=== PATIENT | male | born 1970 | race Caucasian/White ===

== ENCOUNTER 2016-09-30 10:04 | Emergency (ER) | payer SELFPAY ==
[2016-09-30] MEDS ORDERED: OXYCODONE-ACETAMINOPHEN 5-325 MG TABLET PO ONE (10:24)
[2016-09-30 10:25] VITALS: BP 168/103
--- NOTE | 2016-09-30 10:26 | ER Document Report ---
ED Extremity Problem, Lower - General Chief Complaint: Feet Swelling Stated Complaint: FEET SWELLING,PAIN Time Seen by Provider: 09/30/16 10:18 Mode of Arrival: Ambulatory Information source: Patient - HPI Patient complains to provider of: Pain, Swelling Location: Foot Occurred: Other - 2-3 weeks Onset/Duration: Gradual, Persistent Quality of pain: Achy Severity: Moderate Pain Level: 4 Recent injury: No Associated symptoms: Painful ambulation Exacerbated by: Movement Relieved by: Nothing Notes: It is a 45-year-old male with no past medical history who presents to the emergency room complaining of bilateral foot pain, symptoms started approximately 2-1/2 weeks ago mainly in the left foot, increased redness and swelling at the base of the first toe, over the past few days it has worsened in the right foot, patient has no history of gout but states that he did online research and believes that he does now have gout, he admits that he drinks a lot of beer, eats a lot of red meat, denies any injury to this area, no history of similar symptoms previously, has not taken any medication at home today, over the last few days he has been taking Tylenol arthritis - Related Data Allergies/Adverse Reactions: No Known Allergies Allergy (Unverified 09/30/16 10:26) Past Medical History - General Information source: Patient - Social History Smoking Status: Current Every Day Smoker Family History: Reviewed & Not Pertinent Review of Systems - Review of Systems Constitutional: No symptoms reported EENT: No symptoms reported Cardiovascular: No symptoms reported Respiratory: No symptoms reported Gastrointestinal: No symptoms reported Genitourinary: No symptoms reported Male Genitourinary: No symptoms reported Musculoskeletal: See HPI Skin: See HPI Hematologic/Lymphatic: No symptoms reported Neurological/Psychological: No symptoms reported -: Yes All other systems reviewed and negative Physical Exam - Vital signs Vitals: Temp Pulse Resp BP Pulse Ox 97.6 F 80 18 168/103 H 98 09/30/16 10:25 09/30/16 10:25 09/30/16 10:25 09/30/16 10:25 09/30/16 10:25 - Notes Notes: - General General appearance: Appears well, Alert In distress: None - HEENT Head: Normocephalic, Atraumatic Eyes: Normal Conjunctiva: Normal Extraocular movements intact: Yes Eyelashes: Normal Pupils: PERRL - Respiratory Respiratory status: No respiratory distress - Cardiovascular Rhythm: Regular - Abdominal Inspection: Normal - Back Back: Normal - Extremities General upper extremity: Normal inspection General lower extremity: Bilateral feet with increased redness and swelling at the base of the first digits, tender to palpate, mild swelling diffusely otherwise, 2+ DP pulses, brisk capillary refill with intact sensation and motor - Neurological Neuro grossly intact: Yes Orientation: AAOx4 [place] Coma Scale Eye Opening: Spontaneous [place] Coma Scale Verbal: Oriented [place] Coma Scale Motor: Obeys Commands [place] Coma Scale Total: 15 - Psychological Associated symptoms: Normal affect, Normal mood - Skin Skin Temperature: Warm Skin Moisture: Dry Skin Color: Normal Course - Re-evaluation Re-evalutation: 09/30/16 13:54 Patient symptoms are consistent with gout, he was advised of dietary changes to decrease symptoms, provided with pain medication and advised to follow-up with a primary care provider, patient acknowledges understanding and agreement with plan - Vital Signs Vital signs: Temp Pulse Resp BP Pulse Ox 97.6 F 80 18 168/103 H 98 09/30/16 10:25 09/30/16 10:25 09/30/16 10:25 09/30/16 10:25 09/30/16 10:25 Discharge - Discharge Clinical Impression: Gout Qualifiers: Gout site: foot Gout etiology: unspecified cause Chronicity: acute Laterality: unspecified laterality Qualified Code(s): M10.9 - Gout, unspecified Condition: Stable Disposition: HOME, SELF-CARE Instructions: Gout ([facility]), Gout Diet ([facility]) Additional Instructions: Follow up with your primary care provider in one to 2 days. Return to the emergency room immediately if symptoms worsen or any additional concerns. Prescriptions: Indomethacin [Indocin 50 Mg Capsule] 50 mg PO TID #90 capsule Oxycodone HCl/Acetaminophen [Percocet 5-325 mg Tablet] 1 - 2 tab PO ASDIR PRN # 15 tablet PRN Reason: Forms: Smoking Cessation Education
== END 2016-09-30 10:39 | disposition home or self-care (01) ==
LOC: ER 10:04
DX: M10.9 Gout, unspecified (principal); M79.671 Pain in right foot; M79.672 Pain in left foot; F17.200 Nicotine dependence, unspecified, uncomplicated
CPT/HCPCS: 99283

== ENCOUNTER 2017-03-09 03:27 | Emergency (ER) | payer SELFPAY ==
[2017-03-09] MEDS ORDERED: NORMAL SALINE 1000 ML 1,000 ML IV ONE (03:59)
[2017-03-09] MEDS ORDERED: KETOROLAC TROMETHAMINE INJ/PF 30 MG/1 ML SDV IV ONE (03:59)
[2017-03-09] MEDS ORDERED: ONDANSETRON HCL INJ/PF 4 MG/2 ML SDV IV ONE ×2 (03:59→06:41)
[2017-03-09 04:06] LABS: ABSOLUTE BASOPHILS # (AUTO) 0.1 10^3/uL (0.0-0.2); ABSOLUTE EOSINOPHILS # (AUTO) 0.2 10^3/uL (0.0-0.6); ABSOLUTE LYMPHOCYTES (AUTO) 1.6 10^3/uL (0.5-4.7); ABSOLUTE MONOCYTES (AUTO) 0.9 10^3/uL (0.1-1.4); ABSOLUTE NEUT (AUTO) 11.1 10^3/uL (1.7-8.2); BASOPHILS % (AUTO) 0.8 % (0-2); EOSINOPHILS % (AUTO) 1.2 % (0-6); HEMOGLOBIN 16.2 g/dL (13.5-17.0); HGB HCT DIFFERENCE 1.6; LYMPHOCYTES % (AUTO) 11.5 % (13-45); MEAN CORPUSCULAR HEMOGLOBIN 32.4 pg (27.0-33.4); MEAN CORPUSCULAR HGB CONC 34.5 g/dL (32.0-36.0); MEAN CORPUSCULAR VOLUME 94 fl (80-97); MONOCYTES % (AUTO) 6.6 % (3-13); RED CELL DISTRIBUTION WIDTH 13.7 % (11.5-14.0); SEGMENTED NEUTROPHILS % (AUTO) 79.9 % (42-78); WHITE BLOOD COUNT 13.8 10^3/uL (4.0-10.5)
[2017-03-09 04:19] LABS: ANION GAP 16 (5-19); BLOOD UREA NITROGEN 16 mg/dL (7-20); CALCIUM 9.5 mg/dL (8.4-10.2); CARBON DIOXIDE 26 mmol/L (22-30); CHLORIDE 102 mmol/L (98-107); CREATININE RESULT 0.82 mg/dL (0.52-1.25); GLUCOSE 121 mg/dL (75-110); POTASSIUM 4.4 mmol/L (3.6-5.0); SODIUM 143.9 mmol/L (137-145)
--- NOTE | 2017-03-09 04:34 | RADIOLOGY REPORT (SQ) ---
EXAM DESCRIPTION: CT LTD RENAL STONE PROTOCOL ON CLINICAL HISTORY: 46 years Male, left flank pain COMPARISON: None. TECHNIQUE: This exam was performed according to our departmental dose-optimization program, which includes automated exposure control, adjustment of the mA and/or kV according to patient size and/or use of iterative reconstruction technique. FINDINGS: Minimal bilateral perinephric fat stranding. No significant stone. No hydronephrosis and no hydroureter. 0.3 cm appendicolith and otherwise unremarkable appendix with no evidence of appendicitis. Moderate low attenuation thickening throughout the colonic wall suggests old infectious or inflammatory insult. Atherosclerosis. Mild disc desiccation between the L3 and S1 levels. Unenhanced inferior chest, nonopacified [id number] structures including the gallbladder, moderate L5-S1 desiccated disc bulge, 0.2 cm degenerative L5 retrolisthesis, and remaining musculoskeleton appear otherwise unremarkable. IMPRESSION: 1. Minimal nonspecific perinephric fat stranding may indicate pyelonephritis or chronic medical renal disease. 2. Appendicolith. No evidence of appendicitis.
[2017-03-09] MEDS ORDERED: MORPHINE SULFATE 10 MG/ML INJ IV ONE ×2 (04:37→06:41)
[2017-03-09] MEDS ORDERED: PROMETHAZINE HCL INJ 25 MG/1 ML VIAL IM ONE (04:46)
--- NOTE | 2017-03-09 05:08 | ER Document Report ---
ED General - General Chief Complaint: Abdominal Pain Stated Complaint: ABDOMINAL PAIN Time Seen by Provider: 03/09/17 03:49 Notes: Patient is a 46-year-old male presents with complaint of pain initially started in his left back things were mild yesterday. He then woke up and all night with severe pain in his left flank radiating to left lower quadrant. He denies any dysuria. Denies any fevers. He says he has had a milder version of this pain once in the past but it went away and therefore never saw a physician. He does not see a physician on a regular basis. He does drink alcohol daily. He does smoke. Denies previous history of pancreatitis. He has had vomiting. No diarrhea. No blood in stool. No other complaints at this time. Patient says that he just drinks 1 or 2 drinks a day however his is not at me and saying that it hurts more. When asked patient if ever has withdrawal if he goes more than 24 hours without drinking the patient says no I do not think so however his is actively shaking her head yes that he does. TRAVEL OUTSIDE OF THE [place] IN LAST 30 DAYS: No - Related Data Allergies/Adverse Reactions: No Known Allergies Allergy (Unverified 09/30/16 10:26) Past Medical History - Social History Smoking Status: Current Every Day Smoker Frequency of alcohol use: Heavy Drug Abuse: None Family History: Reviewed & Not Pertinent Patient has suicidal ideation: No Patient has homicidal ideation: No Renal/ Medical History: Denies: Hx Peritoneal Dialysis Review of Systems - Review of Systems Notes: My Normal Review Basic REVIEW OF SYSTEMS: CONSTITUTIONAL : Denies fever, chills, or sweats. Denies recent illness. EENT: Denies eye, ear, throat, or mouth pain or symptoms. Denies nasal or sinus congestion. CARDIOVASCULAR: Denies chest pain. RESPIRATORY: Denies cough, cold, or chest congestion. Denies shortness of breath, difficulty breathing, or wheezing. GASTROINTESTINAL: Flank and left lower quadrant abdominal pain. Current vomiting. GENITOURINARY: Denies difficulty urinating, painful urination, burning, frequency, or blood in urine. MUSCULOSKELETAL: Denies neck or back pain or joint pain or swelling. SKIN: Denies rash or skin lesions. NEUROLOGICAL: Denies altered mental status or loss of consciousness. Denies headache. Denies weakness or paralysis or loss of use of either side. Denies problems with gait or speech. Denies sensory or motor loss. ALL OTHER SYSTEMS REVIEWED AND NEGATIVE. Physical Exam - Vital signs Vitals: Temp Pulse Resp BP Pulse Ox 97.5 F 85 22 H 190/101 H 99 03/09/17 03:39 03/09/17 03:39 03/09/17 03:39 03/09/17 03:39 03/09/17 03:39 - Notes Notes: General Appearance: Well nourished, alert, cooperative, no acute distress, alert , obvious moderate discomfort. Vitals: reviewed, See vital signs table. Head: no swelling or tenderness to the head Eyes: PERRL, EOMI, Conjuctiva clear Mouth: No decreasd moisture Lungs: No wheezing, No rales, No rhonci, No accessory muscle use, good air exchange bilaterally. Heart: Normal rate, Regular rythm, No murmur, no rub Abdomen: Normal BS, soft, No rigidity, patient actually does not have worsening of his pain with palpation., No guarding, no rebound, no abdominal masses, no organomegaly Back: No significant tenderness palpation of the upper or lower back. Extremities: strength 5/5 in all extremities, good pulses in all extremities, no swelling or tenderness in the extremities, no edema. Skin: warm, dry, appropriate color, no rash Neuro: speech clear, oriented x 3, normal affect, responds appropriately to questions. Course - Re-evaluation Re-evalutation: 03/09/17 05:40 All of the patient's testing is back. He had a CT scan which did not show any specific cause of his pain. There is may be just very mild fat stranding around the kidneys themselves but nothing further. No stone. This was a noncontrasted limited CT renal study looking for stone specifically. After scan patient continued to have a lot of pain and vomiting. Now eventually his pain and vomiting is come down. His analysis shows no evidence of blood in the urine. He does show protein. I do not suspect nephrotic syndrome being the patient has absolutely no edema, his normal creatinine, and his albumin and total protein in the blood are not low. Patient says his pain is much improved but he still feels a pressure in his left back and into his left side of his abdomen. He continues to hold near his splenic area. Patient has never received a CT scan before today. His history of radiation exposure is low. I informed him that I do not like to routinely repeat CT scans on patient's however the exact cause of his pain is really not clear and feels appropriate to rule out things such as splenic infarct as well as aortic dissection of the abdominal aorta based on his recurrent pain and atypical symptoms. I will repeat a CT scan with contrast. Patient is agreeable to this. 03/09/17 07:00 CT scan with contrast shows the patient actually has sigmoid colitis. Patient is a family history of inflammatory bowel disease but himself has never had any type of inflammatory bowel disease. He has not had significant diarrhea and has had no blood in his stool. He does have elevated white count. We will initially treat him as possible infectious etiologies this is more likely cause. I will have him follow up with Dr. Garcia, GI physician assistant film editor was 48 and most likely will probably need a colonoscopy after his treatment is done to further confirm his diagnosis. Patient is feeling much better. His pain is much improved. He says he just has small amount pain at this time. His nausea is improved. I will give him a dose of nausea and pain medicine for at least. We will given first dose of antibiotic. I informed him that if he drinks alcohol he will vomits violently with being on these antibiotics. He understands this and says he will stay away from alcohol. His does mention that occasionally he will get a slight tremor if he goes without drinking and therefore will place him on gabapentin to help prevent any withdrawal or any feelings of needing to drink alcohol. I talked to patient about watching his diet. The also put in a list of family doctors being that the patient was hypertensive here. It seems like most of hypertension was related pain being that his blood pressure did improve however he still has some hypertension even after improvement in pain therefore we will have him follow-up family doctor for recheck his blood pressure. I strongly encouraged him to return here immediately if he has fevers, worsening pain, trouble vomiting, or if he feels that he is worsening any way. Patient agrees with plan will be discharged home. Dictation of this chart was performed using voice recognition software; therefore, there may be some unintended grammatical errors. - Vital Signs Vital signs: Temp Pulse Resp BP Pulse Ox 97.5 F 80 16 143/91 H 100 03/09/17 03:39 03/09/17 05:47 12/11/17 05:47 03/09/17 05:47 03/09/17 05:47 - Laboratory Result Diagrams: 03/09/17 03:57 03/09/17 03:57 Laboratory results interpreted by me: 03/09/17 03/09/17 03/09/17 03:57 03:57 03:57 WBC 13.8 H Seg Neutrophils % 79.9 H Lymphocytes % 11.5 L Absolute Neutrophils 11.1 H Glucose 121 H Direct Bilirubin 0.6 H Albumin 5.1 H Urine Protein Urine Ketones 03/09/17 04:46 WBC Seg Neutrophils % Lymphocytes % Absolute Neutrophils Glucose Direct Bilirubin Albumin Urine Protein 100 H Urine Ketones TRACE H Discharge - Discharge Clinical Impression: Colitis Hypertension Qualifiers: Hypertension type: unspecified Qualified Code(s): I10 - Essential (primary) hypertension Condition: Good Disposition: HOME, SELF-CARE Instructions: Family Physicians / Practices, Oral Narcotic Medication ([facility]) Additional Instructions: Your CT scan shows that you have sigmoid colitis. This can sometimes be related to inflammatory bowel disease such as ulcerative colitis or an infectious cause. Being that you do not have any bloody stools or personal history of inflamatory bowel disease I suspect this is probably infectious related. We will therefore place you on antibiotics. Please take them as prescribed. Do not drink alcohol when taking these medications or you will violently vomit. Please take the prescribed gabapentin to help prevent withdrawl. Please avoid fried foods, acidic foods, seeds, and nuts as they can make your colitis worse. Please return to the ER immediately if you have worsening pain, fevers, recurrent vomiting, or if you feel that you are worsening in any way. Please follow up with the GI physician (Dr. Varma) for reevaluation. You may eventually need a colonoscopy due to your age and your recent symptoms. Also, your blood pressure was a little bit elevated. This could be related to your pain and being ill; however, it is very important you follow up with a primary care physician for reevaluation in 1 week to recheck your blood pressure to make sure that you do not have underlying chronic high blood pressure that requires treatment. I have provided a list of local primary care physicians for you. Prescriptions: Ciprofloxacin HCl [Cipro 500 mg Tablet] 500 mg PO BID #14 tablet Gabapentin 400 mg PO ASDIR PRN #22 capsule PRN Reason: Metronidazole [Flagyl 500 mg Tablet] 500 mg PO Q6H #28 tablet Morphine Sulfate [Morphine Ir 15 Mg Tablet] 15 mg PO Q6 PRN #12 tablet PRN Reason: Ondansetron [Zofran Odt 4 mg Tablet] 1 tab PO Q4H PRN #15 tab.rapdis PRN Reason: For Nausea/Vomiting Referrals: CHERI VARMA MD [ACTIVE STAFF] - Follow up in 3-5 days
[2017-03-09 05:16] LABS: ALANINE AMINOTRANSFERASE 42 U/L (21-72); ALBUMIN 5.1 g/dL (3.5-5.0); ALKALINE PHOSPHATASE 83 U/L (38-126); ASPARTATE AMINO TRANSFERASE 33 U/L (17-59); BILIRUBIN,DIRECT 0.6 mg/dL (0.0-0.4); BILIRUBIN,TOTAL 0.7 mg/dL (0.2-1.3); LIPASE 57.6 U/L (23-300)
[2017-03-09 05:17] LABS: AMORPHOUS SEDIMENT,URINE TRACE /HPF; APPEARANCE,URINE CLOUDY; BILIRUBIN,URINE NEGATIVE (NEGATIVE); GLUCOSE, URINE NEGATIVE (NEGATIVE); KETONES,URINE TRACE mg/dL (NEGATIVE); LEUKOCYTE ESTERASE,URINE NEGATIVE (NEGATIVE); NITRITE,URINE NEGATIVE (NEGATIVE); PROTEIN,URINE 100 mg/dL (NEGATIVE); URINE SPECIFIC GRAVITY 1.021; UROBILINOGEN,URINE NEGATIVE mg/dL (<2.0)
[2017-03-09] MEDS ORDERED: NORMAL SALINE 500 ML IV ONE (05:40)
--- NOTE | 2017-03-09 06:29 | RADIOLOGY REPORT (SQ) ---
EXAM DESCRIPTION: CT ABD/PELVIS WITH IV ONLY CLINICAL HISTORY: 46 years Male, left flank pain and abdominal pain COMPARISON: 03/09/2017. TECHNIQUE: IV contrast. This exam was performed according to our departmental dose-optimization program, which includes automated exposure control, adjustment of the mA and/or kV according to patient size and/or use of iterative reconstruction technique. FINDINGS: Minimal perinephric fat stranding. Low-attenuation thickening of colonic bowel wall suggest prior infectious or inflammatory insult. Mild diffuse bowel wall thickening of the proximal sigmoid in the right paracentral pelvis may indicate ongoing colitis. Punctate appendicolith. Normal appendix. Inferior chest, prominent cardiac size, spleen, adrenals, gallbladder, pancreas, remaining gastrointestinal tract, pelvic organs, renal system, moderate L5-S1 desiccated disc bulge, moderate bilateral L5 foraminal stenosis appear otherwise unremarkable. IMPRESSION: Mild proximal sigmoid colitis.
[2017-03-09] MEDS ORDERED: METRONIDAZOLE 500 MG TABLET PO ONE (06:41)
[2017-03-09] MEDS ORDERED: CIPROFLOXACIN HCL 500 MG TABLET PO ONE (06:41)
[2017-03-09] MEDS ORDERED: GABAPENTIN 300 MG CAPSULE PO ONE (06:41)
[2017-03-09] MEDS ORDERED: ONDANSETRON ODT 4 MG TAB (6 TAB/DSPK) PO PRN (06:43)
[2017-03-09] MEDS ORDERED: HYDROCODONE/ACETAMINOPHEN 5-325 MG 6 TAB/DSPK PO PRN (06:43)
[2017-03-09 07:29] VITALS: BP 174/97
== END 2017-03-09 07:26 | disposition home or self-care (01) ==
LOC: ER 03:27
DX: K52.9 Noninfective gastroenteritis and colitis, unspecified (principal); I10 Essential (primary) hypertension; R10.9 Unspecified abdominal pain
CPT/HCPCS: 96376; 99284; 96361; 96374; 96375; 36415; 83690; 85025; 80076; 80048; 81001; 76380; 74177; J1885; J2270; J2405; J7030; J7040

== ENCOUNTER 2018-06-18 23:02 | Emergency (ER) | payer SELFPAY ==
[2018-06-18 23:55] LABS: ABSOLUTE BASOPHILS # (AUTO) 0.1 10^3/uL (0.0-0.2); ABSOLUTE EOSINOPHILS # (AUTO) 0.1 10^3/uL (0.0-0.6); ABSOLUTE LYMPHOCYTES (AUTO) 2.6 10^3/uL (0.5-4.7); ABSOLUTE MONOCYTES (AUTO) 1.1 10^3/uL (0.1-1.4); ABSOLUTE NEUT (AUTO) 4.9 10^3/uL (1.7-8.2); BASOPHILS % (AUTO) 0.6 % (0-2); EOSINOPHILS % (AUTO) 1.6 % (0-6); HEMATOCRIT 44.2 % (37.9-51.0); HEMOGLOBIN 15.5 g/dL (13.5-17.0); LYMPHOCYTES % (AUTO) 29.2 % (13-45); MEAN CORPUSCULAR HEMOGLOBIN 33.6 pg (27.0-33.4); MEAN CORPUSCULAR HGB CONC 35.2 g/dL (32.0-36.0); MEAN CORPUSCULAR VOLUME 96 fl (80-97); MONOCYTES % (AUTO) 12.5 % (3-13); PLATELET COUNT 258 10^3/uL (150-450); RED BLOOD COUNT 4.62 10^6/uL (4.35-5.55); RED CELL DISTRIBUTION WIDTH 14.8 % (11.5-14.0); SEGMENTED NEUTROPHILS % (AUTO) 56.1 % (42-78); TOTAL CELLS COUNTED % (AUTO) 100 %; WHITE BLOOD COUNT 8.8 10^3/uL (4.0-10.5)
[2018-06-19 00:07] LABS: ALANINE AMINOTRANSFERASE 38 U/L (21-72); ALBUMIN 4.6 g/dL (3.5-5.0); ALCOHOL 187 mg/dL (NONE DETECTED); ALKALINE PHOSPHATASE 86 U/L (38-126); ANION GAP 14 (5-19); ASPARTATE AMINO TRANSFERASE 23 U/L (17-59); BILIRUBIN,DIRECT 0.1 mg/dL (0.0-0.4); BILIRUBIN,TOTAL 0.3 mg/dL (0.2-1.3); BLOOD UREA NITROGEN 9 mg/dL (7-20); CALCIUM 9.9 mg/dL (8.4-10.2); CARBON DIOXIDE 24 mmol/L (22-30); CHLORIDE 105 mmol/L (98-107); GLUCOSE 107 mg/dL (75-110); POTASSIUM 4.1 mmol/L (3.6-5.0); SODIUM 142.8 mmol/L (137-145); TOTAL PROTEIN 7.6 g/dL (6.3-8.2)
[2018-06-19 00:09] LABS: ACETAMINOPHEN < 10 ug/mL (10-30); SALICYLATE < 1.0 mg/dL (2.0-20.0)
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
[2018-06-19 00:50] LABS: APPEARANCE,URINE CLEAR; BILIRUBIN,URINE NEGATIVE (NEGATIVE); COLOR,URINE STRAW; GLUCOSE, URINE NEGATIVE (NEGATIVE); KETONES,URINE NEGATIVE (NEGATIVE); LEUKOCYTE ESTERASE,URINE NEGATIVE (NEGATIVE); NITRITE,URINE NEGATIVE (NEGATIVE); PROTEIN,URINE NEGATIVE (NEGATIVE); URINE SPECIFIC GRAVITY 1.004; UROBILINOGEN,URINE NEGATIVE mg/dL (<2.0)
[2018-06-19 01:11] LABS: URINE AMPHETAMINES SCREEN NEGATIVE; URINE BARBITURATES SCREEN NEGATIVE; URINE BENZODIAZEPINES SCREEN NEGATIVE; URINE COCAINE SCREEN UNCONFIRMED POSITIVE; URINE MARIJUANA (THC) SCREEN NEGATIVE; URINE METHADONE SCREEN NEGATIVE; URINE PHENCYCLIDINE SCREEN NEGATIVE
--- NOTE | 2018-06-19 09:23 | ER Document Report ---
Doctor's Note Notes: 06/19/18 09:23 As the rounding physician this AM, I assessed the patient's labs, vitals, and records. No concerning findings this morning. Patient denies any acute complaints. Patient is cleared for disposition by [facility]. 06/19/18 15:54 IVC paperwork rescinded. Patient discharged home in stable condition with no psychiatric medications. PHYSICAL EXAMINATION: GENERAL: Well-appearing, well-nourished and in no acute distress. HEAD: Atraumatic, normocephalic. EYES: Pupils equal round extraocular movements intact, conjunctiva are normal. ENT: Nares patent NECK: Normal range of motion LUNGS: No respiratory distress Musculoskeletal: Normal range of motion NEUROLOGICAL: Normal speech, normal gait. PSYCH: Normal mood, normal affect. SKIN: Warm, Dry, normal turgor, no rashes or lesions noted.
[2018-06-19] MEDS ORDERED: BENZTROPINE MESYLATE 1 MG TABLET PO SCH (11:30)
[2018-06-19] MEDS ORDERED: HALOPERIDOL 5 MG TABLET PO SCH (11:30)
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
[2018-06-19 16:18] VITALS: BP 179/95
== END 2018-06-19 16:20 | disposition home or self-care (01) ==
LOC: ER 23:02
DX: F12.10 Cannabis abuse, uncomplicated (principal); F10.10 Alcohol abuse, uncomplicated; F14.10 Cocaine abuse, uncomplicated; F17.200 Nicotine dependence, unspecified, uncomplicated
CPT/HCPCS: 36415; 80053; 80307; 81001; 85025; 99285